=== PATIENT | male | born 1955 | race Caucasian/White ===

== ENCOUNTER → 2017-01-20 | Outpatient (CLI) | payer BC ==
[2017-01-20 08:28] LABS: BLOOD UREA NITROGEN 12 mg/dL (7-22); CALCIUM 9.2 mg/dL (8.7-10.7); EST GLOMERULAR FILTRATION > 60 (>60 ml/min/1.73m(2)); SERUM ALBUMIN 3.9 g/dL (3.5-4.8)
[2017-01-20 08:31] LABS: HEMOGLOBIN A1C 5.06 % (4.2-6.0)
[2017-01-20 09:48] LABS: FREE T4 (FREE THYROXINE) 0.98 ng/dL (0.93-1.71)
== END ==
LOC: LAB 08:10
PROVIDERS: ATTEND Internal Medicine Gastroenterology
DX: K31.84 Gastroparesis (principal); R19.7 Diarrhea, unspecified
CPT/HCPCS: 36415; 80053; 83036; 84439; 84443